=== PATIENT | male | born 1985 | race Caucasian/White ===

== ENCOUNTER 2017-08-28 19:52 | Emergency (ER) | payer OTHER ==
[~2017-08-28] VITALS: Ht 175.3 cm; Wt 80.3 kg
--- NOTE | 2017-08-28 20:38 | RADIOLOGY REPORT ---
EXAMINATION: XR SHOULDER, RIGHT CLINICAL INFORMATION: Right shoulder deformity, question dislocation COMPARISON: None TECHNIQUE: AP external rotation, Grashey, scapular Y, and axillary views of the right shoulder. FINDINGS: The humeral head appears positioned relatively superiorly and anteriorly compared to the glenoid cavity. Right proximal humeral cortical screws are demonstrated. 2 cortical screws are also noted within the body of the scapula. The acromioclavicular interval is mildly prominent. No acute fracture is demonstrated. The adjacent right lung apex is normally aerated. IMPRESSION: Relatively superior and anterior location of the proximal humerus which can be seen in setting of rotator cuff repair failure. Evidence of prior right shoulder surgical intervention.
--- NOTE | 2017-08-28 20:42 | ED UPPER/LOWER EXTREMITY COMPL ---
History of Present Illness General Chief Complaint: Upper Extremity Problem Stated Complaint: PT IS HAVING PAIN IN THE RT SHOULDER Source: patient Exam Limitations: no limitations Vital Signs & Intake/Output Vital Signs & Intake/Output Vital Signs Date Time Temp Pulse Resp B/P B/P Pulse O2 O2 Flow FiO2 Mean Ox Delivery Rate 08/29 2007 97.2 77 16 102/66 99 Room Air Allergies Coded Allergies: No Known Allergies (08/28/17) Triage Note: PT IS REQUESTING EVALUATION OF RIGHT SHOULDER. HE HAD SURGERY [facility] JULY 21, HIS NOTED THAT HIS SHOULDER APPEARS NOT TO BE IN ALLIGNEMNT.. PT DENIED PAIN. Triage Nurses Notes Reviewed? yes HPI: 32M no PMH presenting with a sensation of shoulder dislocation. Patient had right Laterjet surgery on 07/21/17 (shoulder to repair recurrent dislocations) without complication. He has been doing rehab for the past two weeks, last session 3 days ago. His arm is currently in a sling. He denies any pain and feels well overall. His ROM is limited by weakness when performing his exercises, which he was doing today. He felt no pain during exercise and did not feel a pop or any movement. His noticed that his arm looked unaligned. He has full sensation in his arm, good blood flow to fingers, and full ROM and strength of wrist and hand. No recent trauma, no other complaints. Past History Travel History Traveled to [place] past 21 day No Medical History Any Pertinent Medical History? see below for history Neurological: SEIZURE X 1. Surgical History Surgical History: non-contributory Psychosocial History What is your primary language Guamanian Tobacco Use: Never used Family History Hx Contributory? No Review of Systems Review of Systems Constitutional: Reports: no symptoms. EENTM: Reports: no symptoms. Respiratory: Reports: no symptoms. Cardiovascular: Reports: no symptoms. Gastrointestinal/Abdominal: Reports: no symptoms. Genitourinary: Reports: no symptoms. Musculoskeletal: Reports: no symptoms. Skin: Reports: no symptoms. Neurological/Psychological: Reports: no symptoms. Hematologic/Endocrine: Reports: no symptoms. Immunological: Reports: no symptoms. All Other Systems: Reviewed and Negative Physical Exam Physical Exam General Appearance: well developed/nourished, no apparent distress Head: atraumatic, normal appearance Eyes: Bilateral: normal appearance. Ears, Nose, Throat: hearing grossly normal Neck: normal inspection, supple, full range of motion Cardiovascular/Respiratory: normal breath sounds, normal peripheral pulses Back: normal inspection, normal range of motion Shoulder Left: normal range of motion, normal inspection Shoulder Right: in shoulder immobilizer, no deformity noted, no tenderness, full sensation and strength of fingers, hand, and elbow, normal radial pulses, normal color Progress Differential Diagnosis: contusion, dislocation, fracture, sprain, tendon injury Plan of Care: Current Medications Sig/Kraig Start time Last Medication Dose Stop Time Status Admin Etomidate 20 MG ONCE ONE 08/28 2129 UNVr 08/28 (Amidate) 08/28 Diagnostic Imaging: Viewed by Me: Radiology Read. Discussed w/RAD: Radiology Read. Radiology Impression: PATIENT: NATASHA MARTINEZ PRESENT AGE: 32 PATIENT ACCOUNT NO: [id number] : 86 LOCATION: [facility] ORDERING PHYSICIAN: Rene Blair DO SERVICE DATE: 08/28/17 EXAM TYPE: RAD - XRY-SHOULDER COMPLETE-RIGHT Addendum: Additional axillary view obtained. No change in the overall conclusion of the report. Additionally noted is a discontinuity of the cortex of the proximal humerus which may indicate a nondisplaced fracture. Addendum Signed by: Myrna Madera MD 08/28/172131 EXAMINATION: XR SHOULDER, RIGHT CLINICAL INFORMATION: Right shoulder deformity, question dislocation COMPARISON: None TECHNIQUE: AP external rotation, Grashey, scapular Y, and axillary views of the right shoulder. FINDINGS: The humeral head appears positioned relatively superiorly and anteriorly compared to the glenoid cavity. Right proximal humeral cortical screws are demonstrated. 2 cortical screws are also noted within the body of the scapula. The acromioclavicular interval is mildly prominent. No acute fracture is demonstrated. The adjacent right lung apex is normally aerated. IMPRESSION: Relatively superior and anterior location of the proximal humerus which can be seen in setting of rotator cuff repair failure. Evidence of prior right shoulder surgical intervention. DICTATED BY: Myrna Madera MD DATE/TIME DICTATED:08/28/172028 KAIAKO KURA TUARUA:KELLEE DATE/TIME TRANSCRIBED:08/28/172028 CONFIDENTIAL, DO NOT COPY WITHOUT APPROPRIATE AUTHORIZATION. <Electronically signed in Other Vendor System> SIGNED BY: Myrna Madera MD 08/28/172037, PATIENT: NATASHA MARTINEZ PRESENT AGE: 32 PATIENT ACCOUNT NO: [id number] : 86 LOCATION: [facility] ORDERING PHYSICIAN: Major Shelton MD SERVICE DATE: 08/28/17 EXAM TYPE: RAD - XRY-SHOULDER COMPLETE-RIGHT EXAMINATION: XR SHOULDER, RIGHT CLINICAL INFORMATION: Status post reduction COMPARISON: Film earlier today TECHNIQUE: 5 views of the right shoulder. FINDINGS: When comparison is made to the prior study there does not appear to be a significant change in appearances of the humeral head with respect to the glenoid. It still appears minimally anterior on the Y view. 2 screws are present in the humeral head and 2 screws in the scapula. IMPRESSION: No significant interval change. The humeral head still appears minimally anterior to the glenoid. DICTATED BY: Jose Lazo MD DATE/TIME DICTATED:08/28/172239 KAIAKO KURA TUARUA:KELLEE DATE/TIME TRANSCRIBED:08/28/172239 CONFIDENTIAL, DO NOT COPY WITHOUT APPROPRIATE AUTHORIZATION. <Electronically signed in Other Vendor System> SIGNED BY: Jose Lazo MD 08/28/172249 Departure Departure Disposition: HOME OR SELF CARE Condition: Stable Clinical Impression Primary Impression: Shoulder subluxation, right Qualifiers: Encounter type: initial encounter Qualified Code: S43.001A - Unspecified subluxation of right shoulder joint, initial encounter Referrals: Darby LLOYD,Emely Cason (PCP/Family) Additional Instructions: Follow up with your orthopedist. Do not do any further exercises or physical therapy until you see your orthopedist. Keep your arm in the sling. Tylenol/ Motrin for pain. Return to ER if any new or worsening symptoms. Departure Forms: Customer Survey General Discharge Information
[2017-08-28 22:45] VITALS: BP 122/76
--- NOTE | 2017-08-28 22:50 | RADIOLOGY REPORT ---
EXAMINATION: XR SHOULDER, RIGHT CLINICAL INFORMATION: Status post reduction COMPARISON: Film earlier today TECHNIQUE: 5 views of the right shoulder. FINDINGS: When comparison is made to the prior study there does not appear to be a significant change in appearances of the humeral head with respect to the glenoid. It still appears minimally anterior on the Y view. 2 screws are present in the humeral head and 2 screws in the scapula. IMPRESSION: No significant interval change. The humeral head still appears minimally anterior to the glenoid.
== END 2017-08-28 23:27 ==
LOC: ERH 19:52
DX: S43.006A Unspecified dislocation of unspecified shoulder joint, initial encounter (principal); X58.XXXA Exposure to other specified factors, initial encounter; Y92.9 Unspecified place or not applicable; Y93.89 Activity, other specified
CPT/HCPCS: 73030-RT; 96374